=== PATIENT | female | born 1980 ===

== ENCOUNTER 2017-12-20 18:10 | Inpatient (IN) | payer MEDICAID, SELFPAY ==
[2017-12-20 18:51] VITALS: BMI 30.1
[2017-12-20] MEDS ORDERED: Lactated Ringer's 1,000 ML IV SCH (19:00)
[2017-12-20] MEDS ORDERED: Oxycodone/Acetaminophen 5/325 mg Tab PO PRN ×2 (19:15)
[2017-12-20] MEDS ORDERED: Benzocaine/Menthol SPRAY TOP PRN (19:15)
[2017-12-20 19:16] LABS: BASO % 0.3 % (0.0-2.0); EOS # 0.7 K/uL (0.0-0.7); EOS % 5.2 % (0.0-4.0); HEMOGLOBIN 11.9 g/dL (12.0-16.0); LYMPH % 16.3 % (20.0-40.0); MEAN CORPUSCULAR HGB CONC 32.1 g/dL (33.0-37.0); MEAN PLATELET VOLUME 8.7 fl (7.2-11.7); MONO # 0.5 K/uL (0.0-0.8); MONO % 4.3 % (0.0-10.0); NEUT # 9.3 K/uL (1.8-7.0); NEUT % 73.9 % (50.0-75.0); RBC 4.96 Mil/uL (3.80-5.20); RED CELL DISTRIBUTION WIDTH 18.3 % (11.5-14.5); WHITE BLOOD COUNT 12.6 K/uL (4.8-10.8)
[2017-12-20 19:25] LABS: MEAN CELL VOLUME 74.7 fl (81.0-99.0)
[2017-12-20] MEDS ORDERED: Midazolam 2 MG/2 ML VIAL ONE (19:36)
[2017-12-20] MEDS ORDERED: Propofol 10 mg/ml Inj (20 ML) ONE (19:37)
[2017-12-21] MEDS ORDERED: Ammonia 2% Inhalant ONE (03:04)
[2017-12-21] MEDS ORDERED: Sodium Chloride 0.9% 1,000 ML IV SCH (03:30)
--- NOTE | 2017-12-21 03:31 | PCM.RRT ---
I.Reason for ELECTRICAL WIRING LINEMAN - A) Acute Change in Patient: Subjective: ELECTRICAL WIRING LINEMAN Start Time: 3:00am ELECTRICAL WIRING LINEMAN Reason: Hypotension S: ELECTRICAL WIRING LINEMAN Called by RN bc pt complained of dizziness after voiding and BP was noted to be 90/50. RN also reports blood clots passed in toilet. Denied any cp, sob. O: 90/60, 74, Accucheck 111, O2 sat 100% on rm air General: Pt seen lying in bed, alert and oriented to time and place Cardio: RRR, no murmurs Pulm: CTABL Abdomen: Uterus firm, NT External genital exam: No active bleeding noted Extremities: warm, good distal pulses Skin: good color ELECTRICAL WIRING LINEMAN Interventions: LR bolus 1L x1 CBC stat Repeat BP: 104/57, 68 Repeat BP: 123/52, 68 A: Pt is a post day 1 after complicated by Uterine Atony 8 hours prior s/p Methergine and Hemobate now presenting with episode of low blood pressure. Blood pressure stabilized with IV fluids. No active bleeding noted. Uterus firm, no signs of uterine atony present. P: Monitor Vitals and f/u cbc ELECTRICAL WIRING LINEMAN MD: Dr. Rangel ELECTRICAL WIRING LINEMAN End time: 3:30am
[2017-12-21 03:47] LABS: HEMOGLOBIN 8.7 g/dL (12.0-16.0); MEAN CELL VOLUME 74.8 fl (81.0-99.0); MEAN CORPUSCULAR HEMOGLOBIN 24.5 pg (27.0-31.0); MEAN CORPUSCULAR HGB CONC 32.8 g/dL (33.0-37.0); RBC 3.54 Mil/uL (3.80-5.20); RED CELL DISTRIBUTION WIDTH 18.2 % (11.5-14.5); WHITE BLOOD COUNT 12.8 K/uL (4.8-10.8)
[2017-12-21] MEDS: Lactated Ringer's 1,000 ML IV SCH ×2 (05:32→05:36)
--- NOTE | 2017-12-21 08:20 | OBDS ---
DELIVERY PERSONNEL Delivery Doctor: Alcira Mcdermott MD Eyedotter: ECroweRN Resident: Dr. Gaines PGY1 MATERNAL INFORMATION Delivery Anesthesia: None Medications in Delivery: Pitocin 20 units in 1000 mls x 2 Estimated Blood Loss (ml): 500 Placenta Cultured: No Maternal Complications: None Provider Comments: of live female infant at 19:11 after precipitous labor over intact perineum. AROM prior to delivery, Amniotic fluid was meconium stained. No nuchal cord was noted. weighi ng 3810g with 9/9. Cord clamped and cut and infant handed to pediatrition. Cord blood sent for analysis. Placenta delivered spontaneously at 19:20, intact, followed by IV Pitocin and uterine massa ge for hemostasis. Uterus, cervix, vagina and rectum explored with no lacerations noted. Uterine aton y noted with brisk bleed. Pt given 0.2mg Methergine IM and 250mcg Hemobate IM; hemostasis was achieve d. Pt was in stable condition. EBL 500cc. Sandor PGY1 [address] Mcdermott Addendum: I was present and participated in delivery. Agree with above note. Baldemar LABOR SUMMARY EDC: 12/15/2017 00:00 No. Babies in Womb: 1 Attempted: No Labor Anesthesia: None LABOR INFORMATION Reason for Induction: Not Applicable Onset of Labor: 12/20/2017 13:00 Complete Dilatation: 12/20/2017 18:50 Oxytocin: N/A Group B Beta Strep: Negative Antibiotics # of Doses: N/A Antibiotics Time of Last Dose: N/A Steroids Given: None Reason Steroids Not Administered: Not Applicable MEMBRANES Membranes Rupture Method: Artificial Rupture of Membranes: 12/20/2017 19:00 Length of Rupture (hrs): 0.18 Amniotic Fluid Color: Light Meconium Amniotic Fluid Amount: Moderate Amniotic Fluid Odor: Normal STAGES OF LABOR Stage 1 hrs: 5 Stage 1 min: 50 Stage 2 hrs: 0 Stage 2 min: 21 Stage 3 hrs: 0 Stage 3 min: 9 Total Time in Labor hrs: 6 Total Time in Labor min: 20 VAGINAL DELIVERY Episiotomy: None Laceration Extension: N/A Laceration Type: None Laceration Repair: Not Applicable Initial Vag Sponge Count: 35 Final Vag Sponge Count: 35 Initial Vag Sharps Count: 2 Final Vag Sharps Count: 2 Sponge Count Correct: Yes Sharps Count Correct: Yes Count Comment: MD confirmed count BABY A INFORMATION Delivery Date/Time: 12/20/2017 19:11 Method of Delivery: Vaginal Born in Route : No : N/A Forceps: N/A Vacuum Extraction: N/A Shoulder Dystocia : No SHOULDER DYSTOCIA BABY A Delivery Date/Time: 12/20/2017 19:11 PRESENTATION/POSITION BABY A Presentation: Cephalic Cephalic Presentation: Vertex Breech Presentation: N/A PLACENTA INFORMATION BABY A Placenta Delivery Time : 12/20/2017 19:20 Placenta Method of Delivery: Spontaneous Placenta Status: Delivered SCORES BABY A Heart Rate 1 min: >100 bpm Resp Effort 1 min: Good Cry Reflex Irritability 1 min: Cough or Sneeze or Pulls Away Muscle Tone 1 min: Active Motion Color 1 min: Body [place], Extremities Blue Resuscitation Effort 1 min: N/A SCORE 1 MIN: 9 Heart Rate 5 min: >100 bpm Resp Effort 5 min: Good Cry Reflex Irritability 5 min: Cough or Sneeze or Pulls Away Muscle Tone 5 min: Active Motion Color 5 min: Body [place], Extremities Blue Resuscitation Effort 5 min: N/A SCORE 5 MIN: 9 INFANT INFORMATION BABY A Gestational Age at Delivery: 40.5 Gestational Status: Term Outcome : Liveborn Infant Condition : Stable Infant Sex: Female IDENTIFICATION/MEDS BABY A ID Band Number: [id number] ID Band Location: Left Leg; Left Arm WEIGHT/LENGTH BABY A Birthweight (gms): 3810 Weight (lb): 8 Infant Weight (oz): 6 CORD INFORMATION BABY A No. Cord Vessels: 3 Nuchal Cord : N/A Nuchal Cord Other: N/A True Knot: N/A Cord pH Baby Arterial: N/A Infant Cord pH Baby Venous: N/A Cord Blood Taken: Yes Banking/Donate Info: N/A Infant Suction: Mouth; Nose ASSESSMENT BABY A Complications: None Physical Findings at Delivery: Within Normal Limits Respirations: Appears Normal Protection Mgr/ALS Called : No Care By: Dr. Reinoso Transferred To: Remains with Mother
--- NOTE | 2017-12-21 08:27 | OBDS ---
DELIVERY PERSONNEL Delivery Doctor: Alcira Mcdermott MD Char Puller: ECroweRN Resident: Dr. Gaines, PGY1 MATERNAL INFORMATION Delivery Anesthesia: None Medications in Delivery: Pitocin 20 units in 1000 mls x 2 Estimated Blood Loss (ml): 500 Placenta Cultured: No Maternal Complications: None Provider Comments: of live female infant at 19:11 after precipitous labor over intact perineum. AROM prior to delivery, Amniotic fluid was meconium stained. No nuchal cord was noted. weighi ng 3810g with 9/9. Cord clamped and cut and infant handed to pediatrition. Cord blood sent for analysis. Placenta delivered spontaneously at 19:20, intact, followed by IV Pitocin and uterine massa ge for hemostasis. Uterus, cervix, vagina and rectum explored with no lacerations noted. Uterine aton y noted with brisk bleed. Pt given 0.2mg Methergine IM and 250mcg Hemobate IM; hemostasis was achieve d. Pt was in stable condition. EBL 500cc. Sandor PGY1 Attending Dr. Mcdermott Addendum: I was present and participated in delivery. Agree with above note. Baldemar LABOR SUMMARY EDC: 12/15/2017 00:00 EDC: 12/15/2017 00:00 No. Babies in Womb: 1 Attempted: No Labor Anesthesia: None LABOR INFORMATION Reason for Induction: Not Applicable Onset of Labor: 12/20/2017 13:00 Complete Dilatation: 12/20/2017 18:50 Oxytocin: N/A Group B Beta Strep: Negative Antibiotics # of Doses: N/A Antibiotics Time of Last Dose: N/A Steroids Given: None Reason Steroids Not Administered: Not Applicable MEMBRANES Membranes Rupture Method: Artificial Membranes Rupture Method: Artificial Rupture of Membranes: 12/20/2017 19:00 Length of Rupture (hrs): 0.18 Amniotic Fluid Color: Light Meconium Amniotic Fluid Color: Light Meconium Amniotic Fluid Amount: Small Amniotic Fluid Amount: Moderate Amniotic Fluid Odor: Normal STAGES OF LABOR Stage 1 hrs: 5 Stage 1 min: 50 Stage 2 hrs: 0 Stage 2 min: 21 Stage 3 hrs: 0 Stage 3 min: 9 Total Time in Labor hrs: 6 Total Time in Labor min: 20 VAGINAL DELIVERY Episiotomy: None Laceration Extension: N/A Laceration Type: None Laceration Repair: Not Applicable Initial Vag Sponge Count: 35 Final Vag Sponge Count: 35 Initial Vag Sharps Count: 2 Final Vag Sharps Count: 2 Sponge Count Correct: Yes Sharps Count Correct: Yes Count Comment: MD confirmed count BABY A INFORMATION Infant Delivery Date/Time: 12/20/2017 19:11 Method of Delivery: Vaginal Born in Route : No : N/A Forceps: N/A Vacuum Extraction: N/A Shoulder Dystocia : No SHOULDER DYSTOCIA BABY A Delivery Date/Time: 12/20/2017 19:11 PRESENTATION/POSITION BABY A Presentation: Cephalic Cephalic Presentation: Vertex Breech Presentation: N/A PLACENTA INFORMATION BABY A Placenta Delivery Time : 12/20/2017 19:20 Placenta Method of Delivery: Spontaneous Placenta Status: Delivered SCORES BABY A Heart Rate 1 min: >100 bpm Resp Effort 1 min: Good Cry Reflex Irritability 1 min: Cough or Sneeze or Pulls Away Muscle Tone 1 min: Active Motion Color 1 min: Body [place], Extremities Blue Resuscitation Effort 1 min: N/A SCORE 1 MIN: 9 Heart Rate 5 min: >100 bpm Resp Effort 5 min: Good Cry Reflex Irritability 5 min: Cough or Sneeze or Pulls Away Muscle Tone 5 min: Active Motion Color 5 min: Body [place], Extremities Blue Resuscitation Effort 5 min: N/A SCORE 5 MIN: 9 INFORMATION BABY A Gestational Age at Delivery: 40.5 Gestational Status: Term Outcome : Liveborn Condition : Stable Infant Sex: Female IDENTIFICATION/MEDS BABY A ID Band Number: [id number] ID Band Location: Left Leg; Left Arm WEIGHT/LENGTH BABY A Birthweight (gms): 3810 Infant Weight (lb): 8 Infant Weight (oz): 6 CORD INFORMATION BABY A No. Cord Vessels: 3 Nuchal Cord : N/A Nuchal Cord Other: N/A True Knot: N/A Cord pH Baby Arterial: N/A Infant Cord pH Baby Venous: N/A Cord Blood Taken: Yes Banking/Donate Info: N/A Suction: Mouth; Nose ASSESSMENT BABY A Infant Complications: None Physical Findings at Delivery: Within Normal Limits Infant Respirations: Appears Normal Shuttlecock Assembler/ALS Called : No Care By: Dr. Reinoso Transferred To: Remains with Mother
[2017-12-21] MEDS: Multivitamin With Minerals Tab PO SCH (08:30)
[2017-12-21 12:55] LABS: HEMOGLOBIN 8.3 g/dL (12.0-16.0); MEAN CELL VOLUME 74.4 fl (81.0-99.0); MEAN CORPUSCULAR HEMOGLOBIN 24.1 pg (27.0-31.0); MEAN CORPUSCULAR HGB CONC 32.4 g/dL (33.0-37.0); RBC 3.43 Mil/uL (3.80-5.20); RED CELL DISTRIBUTION WIDTH 18.1 % (11.5-14.5); WHITE BLOOD COUNT 14.6 K/uL (4.8-10.8)
--- NOTE | 2017-12-21 19:57 | OBPPN ---
Datetime: 12/21/2017 06:18 PP Pain Prov: Within normal limits PP Nausea Prov: Denies PP Flatus Prov: Yes PP BM Prov: No PP Impression Prov: Normal progression PP Plan Prov: Continue present management PP Progress Note Prov: [place] Interprator: [id number] (sciencebite) PPD 1 S: 37 y/o female s/p complicated w/ uterine atony s/p Hemobate and Methergine on 11/28 11/14, evaluated on PPD1. PROPELLER ENGINEER called overnight due to pt complaining of dizziness after urinating and was noted to have BP 90/60. Pt's BP responded to 1 L bolus. STAT CBC sent. Pt seen and examined this am. Endorses mild lightheadedness when standing but feels better since last night. Also reports mild abdominal pain this morning, but well controlled with pain meds. Breast feeding (with formula supple mentation) without difficulty. Lochia is similar to menses volume. -Flatus/-BM.Denies fever/chills, d iarrhea, nausea/vomiting, chest pain, dyspnea, and dizziness. O: VS: BP systolic 95-139, diastolic 57-83, HR 86.O2 sat 99 on Rm air. Urine output- 1249ml GEN: NAD Cardio: S1S2, no murmurs Lungs: clear breath sounds b/l, no wheezing Abdomen: BS+, appropriate tenderness to palpation. Uterus is firm and at the level of the umbilic us. EXT: No edema, calves nontender, good distal pulses NEURO/PSYCH: AAOx3, no grossly focal deficits, preserved affect and mood. H/H (post ): 8.7/26.5 Assessment/Plan: 37 y/o female s/p on 12/20/17, doing well on PPD1. Post hemogl obin 8.7, will start Ferrous Sulfate for now, consider repeat CBC to trend Hg. Reports mild lighthead eness upon standing. Denies palpitations, cp, or sob. Transfuse if <7. Pt remains afebrile, toleratin g pain with medication. BP stable. Good urine output. Uterus firm. Anticipating d/c on 12/22. Continu e with current management. OOB with caution; fall precaution in place Encourage and ambulating Ibuprofen 600mg q6 and Percocet for pain Ferrous Sulfate 325mg BID Sen[place]ot 17.2 mg PO HS Félix Gaines PGY1 Attending Note: Agree with above assessment; Vital Signs Provider PP: Reviewed; Within Normal Limits
--- NOTE | 2017-12-22 09:04 | OBPPN ---
Datetime: 12/22/2017 06:19 PP Pain Prov: Within normal limits PP Nausea Prov: Denies PP Flatus Prov: Yes PP BM Prov: No PP Impression Prov: Normal progression PP Plan Prov: Continue present management; Discharge PP Progress Note Prov: [place] Interprator: [id number] ([place]) PPD 2 S: 37 y/o female s/p complicated w/ uterine atony s/p Hemobate and Methergine on , evaluated on PPD2. No overnight events. Pt seen and examined this am. Reports mild abdominal pain this morning, but well controlled with pain meds. Breast feeding (with formula supplementation) without difficulty. Lochia is similar to menses volume. -Flatus/+BM.Denies fever/chills, diarrhea, na usea/vomiting, chest pain, dyspnea, and dizziness. O: VS: BP wnl, 2 episodes of tahcycardia, HR 100 otherwise wnl. GEN: NAD Cardio: S1S2, no murmurs Lungs: clear breath sounds b/l, no wheezing Abdomen: BS+, appropriate tenderness to palpation. Uterus is firm and at the level of the umbilic us. EXT: No edema, calves nontender, good distal pulses NEURO/PSYCH: AAOx3, no grossly focal deficits, preserved affect and mood. H/H (post ): 8.7/26.5 H/H (post repeat): 8.3/26.5 Assessment/Plan: 37 y/o female s/p on 12/20/17, doing well on PPD2. Post hemogl obin 8.3, currently on FeSo4. Pt remains afebrile, tolerating pain with medication. BP stable. Good u rine output. Uterus firm. Cleared by Social Work for d/c. EDPS 0. Anticipating d/c today. Continue wi th current management. OOB with caution Encourage and ambulating Ibuprofen 600mg q6 and Percocet for pain Ferrous Sulfate 325mg BID Senakot 17.2 mg PO HS Adiam Eder, PGY1 Attending Note: I agree with above. Vital Signs Provider PP: Reviewed
--- NOTE | 2017-12-22 09:06 | OBDCSUM ---
Datetime: 12/22/2017 06:23 Discharged to, Provider: Home Follow up at, Provider: MD He Instr Activity: Normal activity; May be up to bathroom; May be up for meals; May Shower Disch Instr Diet: Regular Discharge Instructions, Provider: Routine instructions given Discharge Diagnosis, Provider: Term Delivered Discharge Time: 12/22/2017 09:04 Follow up in weeks, Provider: 4-6 weeks Disch Referrals: None Contraception discussed, Prov: Yes Disch Activity Restrictions: No sexual activity; Nothing in vagina - [place], tampons, douche Discharge Comment, Provider: Diagnosis: 37 y/o female s/p complicated w/ uterine atony s/p Hemobate and Methergine on 12/20/17 : Female, 3810, 9/9 Post Summary: Uterine Atony noted after delivery which resolved shortly after. H/H post par merced: 8.3/25.5, starting on FeS04. On discharge, lochia less than menses. Discharge Instructions: 1. Encourage 2. PNV 1 tab po daily 3. Ibuprofen 600mg 1 tab prn for mild-mod pain 4. Ferrous Sulfate 325mg BID 5. ER precautions: If excessive bleeding or fever without relief from medication, go to ED 7. F/U in 4-6 weeks Discharge Diagnosis Prov Other: S/P , Clinically Stable Contraception after Delivery: Undecided
[2017-12-22] MEDS: Multivitamin With Minerals Tab PO SCH (09:58)
[2017-12-22] MEDS ORDERED: Oxycodone/Acetaminophen 5/325 mg Tab PO PRN ×2 (10:09)
[2017-12-22] MEDS ORDERED: Benzocaine/Menthol SPRAY TOP PRN (10:09)
[2017-12-22 18:40] VITALS: BP 118/69; PULSE 102; RESP 20; TEMP 98.6; O2SAT 100
[2017-12-23] MEDS ORDERED: Multivitamin With Minerals Tab PO SCH (09:00)
== END 2017-12-22 14:10 | disposition home or self-care (01) | DRG 373 ==
LOC: H.EROB2 18:10 → H.L&D 18:53 → H.OB/GYN 21:41
PROVIDERS: ADMIT Obstetrics & Gynecology; ATTEND Obstetrics & Gynecology
PROC: 10E0XZZ Delivery of Products of Conception, External Approach (ICD-10-PCS; principal; 2017-12-20)
PROC: 4A1HXCZ Monitoring of Products of Conception, Cardiac Rate, External Approach (ICD-10-PCS; 2017-12-20)
DX: O62.3 Precipitate labor (principal); O77.0 Labor and delivery complicated by meconium in amniotic fluid; O62.2 Other uterine inertia; Z37.0 Single live birth; Z3A.40 40 weeks gestation of pregnancy